=== PATIENT | female | born 1975 | race Caucasian/White ===

== ENCOUNTER 2021-08-29 13:17 | Outpatient (NON) | payer OTHER, SELFPAY ==
[2021-09-03 21:02] LABS: Tissue Transglutaminase IgA Ab <1.0 U/mL (<15.0)
[2021-09-04 21:56] LABS: Tissue Transglutaminase IgG Ab <1.0 U/mL (<15.0)
== END 2021-08-29 13:18 | disposition home or self-care (01) ==
LOC: HOME HLTH 13:20
PROVIDERS: Visit Provider Internal Medicine
DX: K21.9 Gastro-esophageal reflux disease without esophagitis (principal); G62.9 Polyneuropathy, unspecified
CPT/HCPCS: 83516; 84443